=== PATIENT | male | born 1950 | race Caucasian/White ===

== ENCOUNTER 2020-01-06 10:53 | Day surgery (SDC) | payer MEDICARE, OTHER ==
[~2020-01-06] VITALS: Ht 162.6 cm; Wt 67.1 kg
--- NOTE | 2020-01-06 14:13 | NUR ---
01/06/20 Nohemy3 Mireille Estrella 1408-PATIENT ARRIVED TO PACU ON 2L NC RR EVEN. IVF INFUSING. PATIENT LAYING LEFT LATERAL. ABDOMEN DISTENDED AND FIRM. PATIENT AROUSES TO VERBAL STIMULI VERY DROWSY DOZES BACK TO SLEEP. ENCOURAGED TO PASS GAS.
--- NOTE | 2020-01-07 11:46 | OR ---
[facility] [address] [place], [place] [address] Signed DATE OF OPERATION: 01/06/2020 SURGEON: Robert Cancino MD PREOPERATIVE DIAGNOSES: 1. Persistent left-sided abdominal pain without evidence of hernia. 2. CT scan findings of thickening of rectosigmoid. 3. History of left partial nephrectomy for malignancy, approximately 10 years ago ([place], [place]). POSTOPERATIVE DIAGNOSIS: Large polyps at 20 and 15 cm (excised). PROCEDURES: Total colonoscopy to cecum with hot snare polypectomy x2. ANESTHESIA: Intravenous sedation; fentanyl 200 mcg, Versed 6 mg. INDICATIONS: This 69-year-old white man is a patient of Dr. Mcadams in [place], [place]. Ten years ago, he underwent left partial nephrectomy for malignant disease. He has had complaints of left-sided abdominal pain, which have been persistent, and was referred initially for possible hernia. No hernia was found clinically. A subsequent CT scan was performed confirming presence of partial nephrectomy on the left side, but also thickening in the rectosigmoid of the colon. He has never had colonoscopy in the past. He is admitted at this time to undergo colonoscopy to better characterize the problem and possibly provide for evaluation of his abdominal pain. He understands risks of bleeding, infection, perforation and wished to proceed. FINDINGS: There were 2 large polyps, one at 20 cm, the other at 15, and a somewhat more suspicious look for malignancy, but both were excised as he had broad-based stalks. The remaining colon was normal. There was no sign of diverticulosis. DESCRIPTION OF PROCEDURE: The patient was brought to the endoscopy suite and placed in lateral decubitus position, given intravenous sedation to the point of slurred speech and nystagmus. Digital rectal examination was normal. Electronically Signed By: ROBERT CANCINO MD 01/07/20 1146 PATIENT NAME: HENRIK BRENNAN OPERATIVE REPORT DATE OF : 48 REPORT #: [id number] PHYSICIAN: ROBERT CANCINO MD PCP: MARY FAYE MD REPORT IS CONFIDENTIAL AND NOT TO BE RELEASED WITHOUT AUTHORIZATION [facility] [address] [place], [place] [address] Signed The Olympus video colonoscope was passed in the rectum and manipulated into the rectosigmoid, where somewhat bulky friable polypoid lesion was noted. The scope was passed beyond this and another more brightly colored polyp was noted. It too had a stalk. The scope was advanced beyond this and notably in passage through the left colon, fair amount of left abdominal pain was noted, typical of his usual pain I suspect. The scope was ultimately advanced to the cecum. The ileocecal valve and appendiceal orifice were normal. Scope was withdrawn from that point, showing no sign of abnormality in the right or transverse or proximal left colon. The polypoid lesion at 20 cm was once again identified. It had a well-defined stalk. This was excised with hot snare polypectomy technique. A Harvey Net was used to capture the polyp and withdraw it. It measured probably 2 cm in size. Complete excision was accomplished. Scope was reintroduced and the stump of the polypectomized polyp was hemostatic. The scope was withdrawn and another amorphous, somewhat larger polyp was noted at 15 cm. It too had a stalk. However, there was more suspicion that this might contain malignancy within it. This too was excised with hot snare polypectomy technique including the stalk itself. A basket was used to retrieve it as well. The scope was once again reintroduced and remaining colon and rectum was normal. Scope was removed. The patient was taken to the recovery room in good condition. CONCLUDING DIAGNOSIS: Two polyps of rectosigmoid, no doubt accounting for findings on CT scan. It would be unlikely these would cause obstructive symptoms, though it is possible given their bulky size. PLAN: We will await the pathology report. At minimum, he should have repeat colonoscopy in 1-2 years. We will see him back in the office in a few weeks to review his symptoms and the pathology report. MD ROBYN Sow/LENAL /[id number] cc: Dr. Mcadams [place] Electronically Signed By: ROBERT CANCINO MD 01/07/20 1146 PATIENT NAME: HENRIK BRENNAN OPERATIVE REPORT DATE OF : 48 REPORT #: [id number] PHYSICIAN: ROBERT CANCINO MD PCP: MARY FAYE MD REPORT IS CONFIDENTIAL AND NOT TO BE RELEASED WITHOUT AUTHORIZATION [facility] [address] [place] [address] Signed [place] Copies: ~ Electronically Signed By: ROBERT CANCINO MD 01/07/20 1146 PATIENT NAME: HENRIK BRENNAN OPERATIVE REPORT DATE OF : 48 REPORT #: [id number] PHYSICIAN: ROBERT CANCINO MD PCP: MARY FAYE MD REPORT IS CONFIDENTIAL AND NOT TO BE RELEASED WITHOUT AUTHORIZATION
--- NOTE | 2020-01-07 15:28 | PATH ---
[facility] [address] [place], [place] [address] Signed SPECIMEN(S): A COLON POLYP AT 20 CM SPECIMEN(S): B COLON POLYP AT 15 CM SPECIMEN SOURCE: A. COLON POLYP AT 20 CM B. COLON POLYP AT 15 CM CLINICAL HISTORY: Colonoscopy. Left sided abdominal pain/colon polyps x 2. MICROSCOPIC DESCRIPTION: Histologic sections of all submitted blocks are examined by light microscopy. These findings, together with the gross examination, support the pathologic diagnosis. FINAL PATHOLOGIC DIAGNOSIS: A. Colon, polyp at 20 cm, polypectomy: - Tubulovillous adenoma. - Polyp stalk margin negative for dysplasia. - Negative for high-grade dysplasia or malignancy. B. Colon, polyp at 15 cm, polypectomy: - Tubulovillous adenoma. - Polyp stalk margin negative for dysplasia. - Negative for high-grade dysplasia or malignancy. COMMENT: As part of [employer] Quality Improvement Program, part B of this case was reviewed by another member of our pathology staff. NAL:cml:C2NR GROSS DESCRIPTION: Two specimens are received in two containers, labeled "VK." A. The specimen, labeled "VK, colon polyp at 20 cm," is received in formalin and consists of one goncalves soft tissue fragment that measures 1.1 cm in greatest dimension. It shows a white stalk that measures 0.3 cm in diameter. The stalk is inked, the specimen is serially sectioned. The specimen is entirely submitted in cassette (A1). B. The specimen, labeled "VK, colon polyp at 15 cm," is received in formalin and consists of one goncalves soft tissue fragment that measures 1.7 cm in greatest dimension. It shows a white stalk that measures 0.6 cm in greatest dimension. The stalk is inked and the specimen serially sectioned. The specimen is entirely submitted in cassettes (B1-B2). PATIENT NAME: HENRIK BRENNAN PATHOLOGY DATE OF : 48 REPORT #: [id number] PHYSICIAN: JORGE ALBERTO BARBER PCP: MARY FAYE MD REPORT IS CONFIDENTIAL AND NOT TO BE RELEASED WITHOUT AUTHORIZATION [facility] [address] [place], [place] [address] Signed JS (under the direct supervision of a pathologist) The Gross Description was prepared using a voice recognition system. The report was reviewed for accuracy; however, sound-alike word errors, addition and/or deletions may occur. If there is any question about this report, please contact Client Services. PERFORMING LABORATORY: The technical component was performed by [facility] [address] (Bone Char Puller: Hien Vieira MD; CLIA# [id number]). Professional interpretation was performed by [facility], [address] [address] (CLIA# [id number]). Diagnostician: Martha Branch MD Pathologist Electronically Signed 01/07/2020 Copies: ~ PATIENT NAME: HENRIK BRENNAN PATHOLOGY DATE OF : 48 REPORT #: [id number] PHYSICIAN: JORGE ALBERTO BARBER PCP: MARY FAYE MD REPORT IS CONFIDENTIAL AND NOT TO BE RELEASED WITHOUT AUTHORIZATION
== END 2020-01-06 16:15 | disposition home or self-care (01) ==
LOC: OPS 10:53
PROVIDERS: Surgery
PROC: 0DBE8ZZ Excision of Large Intestine, Via Natural or Artificial Opening Endoscopic (ICD-10-PCS; principal; 2020-01-06 12:00)
DX: D12.6 Benign neoplasm of colon, unspecified (principal)
CPT/HCPCS: 99153; G0500; J2250; J3010; J7121

== ENCOUNTER 2023-04-03 09:00 | Day surgery (SDC) | payer MEDICARE, OTHER ==
[~2023-04-03] VITALS: Ht 162.6 cm; Wt 59.0 kg
[2023-04-03 09:38] VITALS: BP 142/67
--- NOTE | 2023-04-03 10:49 | NUR ---
04/03/23 1049 Sheets,Jessica 1044 PT ARRIVED TO PACU ON 2L VIA NC AND PT WAKES EASILY AND DENIES CONCERNS. 1046 O2 TURNED OFF. PT ENCOURAGED TO PASS GAS NEEDED.
[2023-04-03 11:31] VITALS: BP 117/68
--- NOTE | 2023-04-05 08:41 | OR ---
[facility] [address] [place], [place] [address] Signed DATE OF OPERATION: 04/03/2023 SURGEON: Robert Cancino MD PREOPERATIVE DIAGNOSIS: History of tubular adenoma, sigmoid colon in 2019. POSTOPERATIVE DIAGNOSIS: Rectosigmoid polyp. PROCEDURE: Total colonoscopy to cecum with cold snare polypectomy x1. ANESTHESIA: Intravenous sedation fentanyl 100 mcg and Versed 5 mg. INDICATION: This 72-year-old white man has no primary care provider. He is from the [facility]. He underwent colonoscopy by me in 2019, at which time he was found to have two tubular adenomas of the sigmoid colon. He is asymptomatic and has no family history of colon cancer that he is aware of. He is admitted at this time to undergo surveillance colonoscopy, understand the risk of bleeding, infection, and perforation. FINDINGS: The prep was good. Complete colonoscopy was undertaken of the cecum. He had an adenomatous appearing polyp of the rectosigmoid which was excised with cold snare technique. There were few diverticula as well. PROCEDURE IN DETAIL: The patient was brought to the endoscopy suite and placed in lateral decubitus position, given intravenous sedation to the point of slurred speech and nystagmus. Digital rectal examination was normal including normal prostate. An Olympus video colonoscope was passed in the rectum and manipulated throughout the colon ultimately intubating the cecum itself. A few scattered diverticula had been seen along the way. The scope was withdrawn from that point and examination throughout showed no sign of abnormality until approximated the rectosigmoid. This was excised fully with cold snare technique. Additional excision with morcellation technique was undertaken as well. Retroflexed view of the rectum showed no other findings of concern other than a few internal hemorrhoids. The scope was then withdrawn and removed. The Electronically Signed By: ROBERT CANCINO MD 04/05/23 0841 PATIENT NAME: HENRIK BRENNAN OPERATIVE REPORT DATE OF : 48 REPORT #: [id number] PHYSICIAN: ROBERT CANCINO MD PCP: MARY FAYE MD REPORT IS CONFIDENTIAL AND NOT TO BE RELEASED WITHOUT AUTHORIZATION [facility] [address] [place], [place] [address] Signed patient was taken to the recovery room in good condition. CONCLUDING DIAGNOSIS: Polyps x1. PLAN: Recommend repeat colonoscopy in five years, sooner if clinically indicated. He will return as needed if there are any problems. Robert Cancino MD JM/MODL /[id number] Copies: ~ Electronically Signed By: ROBERT CANCINO MD 04/05/23 0841 PATIENT NAME: HENRIK BRENNAN OPERATIVE REPORT DATE OF : 48 REPORT #: [id number] PHYSICIAN: ROBERT CANCINO MD PCP: MARY FAYE MD REPORT IS CONFIDENTIAL AND NOT TO BE RELEASED WITHOUT AUTHORIZATION
--- NOTE | 2023-04-05 15:58 | PATH ---
[facility] [address] [place] [place] [address] Signed SPECIMEN(S): A RECTAL POLYP SPECIMEN SOURCE: A. RECTAL POLYP CLINICAL HISTORY: H/O colon polyps. FINAL PATHOLOGIC DIAGNOSIS: Rectal polyp: - Tubular adenoma (1 fragment). JVR:krista MICROSCOPIC EXAMINATION: Histologic sections of all submitted blocks are examined by light microscopy. These findings, together with the gross examination, support the pathologic diagnosis. GROSS DESCRIPTION: The specimen, labeled and designated "Mary rectal polyp," is received in formalin and consists of four fragments of pink-goncalves soft tissue ranging from 0.1 to 0.4 cm in greatest dimension. The tissue is entirely submitted in (A1). ROBYN (under the direct supervision of a pathologist) The Gross Description was prepared using a voice recognition system. The report was reviewed for accuracy; however, sound-alike word errors, addition and/or deletions may occur. If there is any question about this report, please contact Client Services. PERFORMING LABORATORY: Technical component was performed by [facility], [address] [place] [id number] (CLIA# [id number]). Professional interpretation was performed by [facility], [address] [place] [id number] (CLIA#: [id number]). Diagnostician: Matthew Price MD Pathologist Electronically Signed 04/05/2023 Copies: PATIENT NAME: HENRIK BRENNAN PATHOLOGY DATE OF : 48 REPORT #: [id number] PHYSICIAN: JORGE ALBERTO PATHOLOGY PCP: MARY FAYE MD REPORT IS CONFIDENTIAL AND NOT TO BE RELEASED WITHOUT AUTHORIZATION [address] [address] Signed ~ PATIENT NAME: HENRIK BRENNAN BHARAT PATHOLOGY DATE OF : 48 REPORT #: [id number] PHYSICIAN: JORGE ALBERTO PATHOLOGY PCP: MARY FAYE MD REPORT IS CONFIDENTIAL AND NOT TO BE RELEASED WITHOUT AUTHORIZATION
== END 2023-04-03 11:44 | disposition home or self-care (01) ==
LOC: OPS 09:00 → DS 10:44 → OPS 11:44 → DS 13:00
PROVIDERS: ATTEND Surgery
PROC: 0DBN8ZZ Excision of Sigmoid Colon, Via Natural or Artificial Opening Endoscopic (ICD-10-PCS; principal; 2023-04-03 10:00)
DX: Z12.11 Encounter for screening for malignant neoplasm of colon (principal); D12.8 Benign neoplasm of rectum; K59.00 Constipation, unspecified; Z85.528 Personal history of other malignant neoplasm of kidney
CPT/HCPCS: 88305; 99153; G0500; J2250; J3010; J7121